=== PATIENT | female | born 1955 | race Asian ===

== ENCOUNTER 2018-06-22 16:02 | Emergency (ER) | payer OTHER ==
[~2018-06-22] VITALS: Ht 160 cm; Wt 78.9 kg
[~2018-06-22 16:02] MED LIST: GLU500 PO; LEVO25TA7 PO
[2018-06-22 16:07] VITALS: BP_SYST 161
[2018-06-22 17:11] LABS: BASOPHILS # (AUTO) 0.1 K/uL (0.0-0.2); EOSINOPHILS # (AUTO) 0.1 K/uL (0.0-0.4); EOSINOPHILS % (AUTO) 1.7 % (0.0-4.0); HEMATOCRIT 42.1 % (36-48); HEMOGLOBIN 13.9 g/dL (12.0-16.0); LYMPHOCYTES # (AUTO) 2.8 K/uL (1.0-5.5); LYMPHOCYTES % (AUTO) 37.1 % (20.5-51.5); MEAN CORPUSCULAR HEMOGLOBIN 29 pg (27-31); MEAN CORPUSCULAR HGB CONC 33 % (32-36); MEAN CORPUSCULAR VOLUME 88 fL (79.0-98.0); MONOCYTES # (AUTO) 0.4 K/uL (0.0-1.0); MONOCYTES % (AUTO) 4.9 % (1.7-9.3); NEUTROPHILS # (AUTO) 4.2 K/uL (1.8-7.7); NEUTROPHILS % (AUTO) 55.3 % (40.0-70.0); PLATELET COUNT (AUTO) 391 K/uL (130-430); RED CELL DISTRIBUTION WIDTH 12.1 % (9.0-15.0); WHITE BLOOD COUNT (AUTO) 7.6 K/uL (4.8-10.8)
[2018-06-22 17:31] LABS: CALCIUM 9.4 mg/dL (8.4-11.0); CREATININE 0.81 mg/dL (0.55-1.30); TOTAL BILIRUBIN 0.5 mg/dL (0.0-1.0)
[2018-06-22 18:50] VITALS: BP_SYST 151
== END 2018-06-22 18:50 | disposition home or self-care (01) ==
LOC: SED 16:02
DX: R07.89 Other chest pain (principal); R03.0 Elevated blood-pressure reading, without diagnosis of hypertension; Z85.42 Personal history of malignant neoplasm of other parts of uterus; Z91.041 Radiographic dye allergy status
CPT/HCPCS: 36415; 71045; 80053; 82550-TC; 84484; 85025; 93005; 99285

== ENCOUNTER 2019-05-24 14:56 | Outpatient (CLI) | payer OTHER | END 2019-05-24 20:15 | disposition home or self-care (01) | LOC: SUS 14:56 | PROVIDERS: ATTEND Internal Medicine | DX: N13.30 Unspecified hydronephrosis (principal) | CPT/HCPCS: 76770 ==

== ENCOUNTER 2019-06-29 11:34 | Outpatient (CLI) | payer OTHER | END 2019-06-29 21:11 | disposition home or self-care (01) | LOC: SCT 11:34 | PROVIDERS: ATTEND Internal Medicine | DX: N13.2 Hydronephrosis with renal and ureteral calculous obstruction (principal); Z90.710 Acquired absence of both cervix and uterus ==

== ENCOUNTER 2019-07-02 13:40 | Outpatient (CLI) | payer OTHER | END 2019-07-02 21:17 | disposition home or self-care (01) | LOC: SUS 13:40 | PROVIDERS: ATTEND Internal Medicine | DX: N13.39 Other hydronephrosis (principal) | CPT/HCPCS: 76770 ==

== ENCOUNTER 2020-09-02 07:18 | Outpatient (CLI) | payer OTHER | END 2020-09-02 20:09 | disposition home or self-care (01) | LOC: SRD 07:18 | PROVIDERS: ATTEND Internal Medicine | DX: R05 Cough (principal) | CPT/HCPCS: 71046-TC ==

== ENCOUNTER 2020-09-14 06:55 | Outpatient (CLI) | payer OTHER | END 2020-09-14 20:14 | disposition home or self-care (01) | LOC: SUS 06:55 | PROVIDERS: ATTEND Internal Medicine | DX: N28.89 Other specified disorders of kidney and ureter (principal); E04.9 Nontoxic goiter, unspecified; E04.2 Nontoxic multinodular goiter; K76.0 Fatty (change of) liver, not elsewhere classified; N23 Unspecified renal colic | CPT/HCPCS: 76536-TC; 76700-TC ==